=== PATIENT | female | born 1980 | race African-American/Black ===

== ENCOUNTER 2021-05-16 14:46 | Emergency (ER) | payer BC, OTHER ==
[2021-05-16 15:06] VITALS: PULSE 85; BMI 20.3
[2021-05-16 17:29] LABS: BASO % 0.6 % (0-2.0); HEMATOCRIT 37.8 % (32.4-45.2); HEMOGLOBIN 12.8 GM/dL (10.7-15.3); LYMPH % 27.9 % (8-40); MCH 30.1 pg (25.7-33.7); MCHC 33.9 g/dl (32.0-36.0); MEAN CELL VOLUME 88.8 fl (80-96); MEAN PLT VOLUME 8.2 fl (7.5-11.1); MONO % 7.4 % (3.8-10.2); NEUT % 64.1 % (42.8-82.8); PLATELET COUNT 209 10^3/uL (134-434); RBC 4.25 M/mm3 (3.60-5.2); RDW 15.1 % (11.6-15.6); WHITE BLOOD COUNT 3.2 K/mm3 (4.0-10.0)
[2021-05-16 17:31] LABS: PH,URINE 7.5 (5.0-8.0); URINE APPEARANCE CLEAR; URINE BILIRUBIN NEGATIVE (NEGATIVE); URINE COLOR YELLOW; URINE GLUCOSE (UA) NEGATIVE (NEGATIVE); URINE KETONE NEGATIVE (NEGATIVE); URINE LEUK ESTERASE NEGATIVE (NEGATIVE); URINE NITRITE NEGATIVE (NEGATIVE); URINE PROTEIN NEGATIVE (NEGATIVE); URINE UROBILINOGEN 0.2 mg/dL (0.2-1.0)
[2021-05-16 17:34] LABS: HCG,QUALITATIVE URINE Negative
[2021-05-16 17:48] LABS: CHLORIDE 106 mmol/L (98-107); COCAINE, UR NEGATIVE (NEGATIVE); METHADONE, UR NEGATIVE (NEGATIVE); OPIATES, URI NEGATIVE (NEGATIVE); PHENCYCLIDINE,URINE NEGATIVE (NEGATIVE); SODIUM 138 mmol/L (136-145); URINE BENZODIAZEPINES NEGATIVE (NEGATIVE)
[2021-05-16 17:49] LABS: URINE AMPHETAMINES NEGATIVE (NEGATIVE)
[2021-05-16 17:52] LABS: BLOOD UREA NITROGEN 5.2 mg/dL (7-18); CALCIUM 8.7 mg/dL (8.5-10.1)
[2021-05-16 17:53] LABS: ANION GAP 6 MMOL/L (8-16); CO2 26 mmol/L (21-32); GLUCOSE,RANDOM 102 mg/dL (74-106); MAGNESIUM 1.9 mg/dL (1.8-2.4); URINE BARBITURATES NEGATIVE (NEGATIVE)
[2021-05-16 17:55] LABS: SGOT/AST 15 U/L (15-37); SGPT/ALT 17 U/L (13-61)
[2021-05-16 17:56] LABS: PHOSPHOROUS 2.9 mg/dL (2.5-4.9)
[2021-05-16 17:57] LABS: BILIRUBIN,TOTAL 1.6 mg/dL (0.2-1); TOT PROT 7.5 g/dl (6.4-8.2)
[2021-05-16 17:58] LABS: ALK PHOS 69 U/L (45-117)
[2021-05-16 18:51] VITALS: BP 132/75; TEMP 98
== END 2021-05-16 18:15 | disposition home or self-care (01) ==
LOC: JER 14:46
DX: R00.2 Palpitations (principal)
CPT/HCPCS: 36415; 80053; 80307; 81003; 82550; 83735; 84100; 84443; 84484; 84703; 85025; 87086; 93005; 93010; 99284-25

== ENCOUNTER 2021-06-24 22:42 | Emergency (ER) | payer BC, OTHER ==
[2021-06-24 22:47] VITALS: BMI 19.3
[2021-06-24 23:52] VITALS: TEMP 98.4
[2021-06-25 00:35] LABS: BASO % 0.5 % (0-2.0); EOS % 0.6 % (0-4.5); HEMATOCRIT 37.3 % (32.4-45.2); HEMOGLOBIN 12.6 GM/dL (10.7-15.3); LYMPH % 37.6 % (8-40); MCH 30.1 pg (25.7-33.7); MCHC 33.9 g/dl (32.0-36.0); MEAN CELL VOLUME 88.6 fl (80-96); MEAN PLT VOLUME 8.3 fl (7.5-11.1); MONO % 9.1 % (3.8-10.2); NEUT % 52.2 % (42.8-82.8); PLATELET COUNT 189 10^3/uL (134-434); RBC 4.21 M/mm3 (3.60-5.2); RDW 15.4 % (11.6-15.6); WHITE BLOOD COUNT 3.7 K/mm3 (4.0-10.0)
[2021-06-25 01:00] LABS: CHLORIDE 106 mmol/L (98-107); SODIUM 138 mmol/L (136-145)
[2021-06-25 01:02] LABS: CALCIUM 8.8 mg/dL (8.5-10.1)
[2021-06-25 01:03] LABS: ANION GAP 5 MMOL/L (8-16); BLOOD UREA NITROGEN 4.6 mg/dL (7-18); CO2 28 mmol/L (21-32); GLUCOSE,RANDOM 92 mg/dL (74-106)
[2021-06-25 01:06] LABS: CREATININE 0.9 mg/dL (0.55-1.3); SGOT/AST 11 U/L (15-37); SGPT/ALT 12 U/L (13-61)
[2021-06-25 01:08] LABS: BILIRUBIN,TOTAL 1.1 mg/dL (0.2-1); TOT PROT 7.4 g/dl (6.4-8.2)
[2021-06-25 01:09] LABS: ALK PHOS 78 U/L (45-117)
[2021-06-25 01:13] LABS: PH,URINE 5.5 (5.0-8.0); URINE APPEARANCE CLEAR; URINE BILIRUBIN NEGATIVE (NEGATIVE); URINE COLOR YELLOW; URINE GLUCOSE (UA) NEGATIVE (NEGATIVE); URINE KETONE NEGATIVE (NEGATIVE); URINE LEUK ESTERASE NEGATIVE (NEGATIVE); URINE NITRITE NEGATIVE (NEGATIVE); URINE PROTEIN NEGATIVE (NEGATIVE); URINE UROBILINOGEN 0.2 mg/dL (0.2-1.0)
[2021-06-25] MEDS ORDERED: HYDROCHLOROTHIAZIDE 25 MG TABLET (FP) PO ONE (02:23)
[2021-06-25] MEDS ORDERED: HYDROCHLOROTHIAZIDE 25 MG TABLET (FP) ONE (02:27)
[2021-06-25 02:43] VITALS: BP 127/91; PULSE 60
== END 2021-06-25 02:45 | disposition home or self-care (01) ==
LOC: JER 22:42
DX: R42 Dizziness and giddiness (principal); I10 Essential (primary) hypertension
CPT/HCPCS: 36415; 70450-TC; 71045-TC-FY; 80053; 81003; 84484; 84703; 85025; 87086; 93005; 93010; 99285-25; C9803; U0003; U0005

== ENCOUNTER 2021-07-19 19:54 | Inpatient (IN) | payer BC, OTHER ==
[2021-07-19 21:22] LABS: BASO % 0.6 % (0-2.0); EOS % 0.3 % (0-4.5); HEMATOCRIT 41.4 % (32.4-45.2); HEMOGLOBIN 13.7 GM/dL (10.7-15.3); LYMPH % 36.7 % (8-40); MCH 29.9 pg (25.7-33.7); MEAN CELL VOLUME 90.5 fl (80-96); MEAN PLT VOLUME 7.7 fl (7.5-11.1); MONO % 7.7 % (3.8-10.2); NEUT % 54.7 % (42.8-82.8); PLATELET COUNT 219 10^3/uL (134-434); RBC 4.58 M/mm3 (3.60-5.2); RDW 15.9 % (11.6-15.6); WHITE BLOOD COUNT 4.1 K/mm3 (4.0-10.0)
[2021-07-19 21:34] LABS: CHLORIDE 107 mmol/L (98-107); SODIUM 138 mmol/L (136-145)
[2021-07-19 21:37] LABS: ANION GAP 8 MMOL/L (8-16); BLOOD UREA NITROGEN 6.1 mg/dL (7-18); CO2 24 mmol/L (21-32); GLUCOSE,RANDOM 85 mg/dL (74-106)
[2021-07-19 21:39] LABS: SGPT/ALT 17 U/L (13-61)
[2021-07-19 21:40] LABS: CREATININE 0.8 mg/dL (0.55-1.3); PHOSPHOROUS 3.6 mg/dL (2.5-4.9); SGOT/AST 20 U/L (15-37)
[2021-07-19 21:40] LABS: URINE APPEARANCE CLEAR; URINE BILIRUBIN NEGATIVE (NEGATIVE); URINE COLOR YELLOW; URINE GLUCOSE (UA) NEGATIVE (NEGATIVE); URINE KETONE NEGATIVE (NEGATIVE); URINE LEUK ESTERASE NEGATIVE (NEGATIVE); URINE NITRITE NEGATIVE (NEGATIVE); URINE PROTEIN NEGATIVE (NEGATIVE); URINE UROBILINOGEN 0.2 mg/dL (0.2-1.0)
[2021-07-19 21:41] LABS: TOT PROT 7.6 g/dl (6.4-8.2)
[2021-07-19 21:42] LABS: ALK PHOS 68 U/L (45-117)
[2021-07-19 21:45] LABS: N-TERMINAL BNP 57.4 pg/ml (5-125)
[2021-07-19 22:09] LABS: INR 1.01 (0.83-1.09); PROTHROMBIN TIME (PATIENT) 12.4 SEC (9.7-13.0)
[2021-07-20] MEDS ORDERED: ARTIFICIAL TEARS (POLYVINYL ALCOHOL) OPTH DROPS OU PRN (01:02)
[2021-07-20] MEDS ORDERED: ACETAMINOPHEN 325 MG TABLET (FP) PO PRN (05:18)
[2021-07-20] MEDS ORDERED: HYDROCHLOROTHIAZIDE 12.5 MG CAPSULE (FP) PO SCH (10:00)
[2021-07-20 10:31] LABS: BASO % 0.4 % (0-2.0); EOS % 0.1 % (0-4.5); HEMATOCRIT 36.6 % (32.4-45.2); HEMOGLOBIN 12.4 GM/dL (10.7-15.3); LYMPH % 36.3 % (8-40); MCH 30.7 pg (25.7-33.7); MEAN CELL VOLUME 90.5 fl (80-96); MEAN PLT VOLUME 7.9 fl (7.5-11.1); MONO % 6.3 % (3.8-10.2); NEUT % 56.9 % (42.8-82.8); PLATELET COUNT 212 10^3/uL (134-434); RBC 4.05 M/mm3 (3.60-5.2); RDW 15.9 % (11.6-15.6); WHITE BLOOD COUNT 3.4 K/mm3 (4.0-10.0)
[2021-07-20 10:38] VITALS: BMI 18.6
[2021-07-20] MEDS ORDERED: PT OWN MED DRAWER 7, Y5N ONE ×2 (10:45→21:09)
[2021-07-20 10:50] LABS: CALCIUM 8.5 mg/dL (8.5-10.1)
[2021-07-20 10:51] LABS: ALBUMIN 3.5 g/dl (3.4-5.0); BLOOD UREA NITROGEN 4.9 mg/dL (7-18); MAGNESIUM 1.8 mg/dL (1.8-2.4)
[2021-07-20 10:54] LABS: CREATININE 0.8 mg/dL (0.55-1.3)
[2021-07-20 10:55] LABS: BILIRUBIN,TOTAL 1.3 mg/dL (0.2-1); PHOSPHOROUS 3.2 mg/dL (2.5-4.9); TOT PROT 6.6 g/dl (6.4-8.2)
[2021-07-20] MEDS ORDERED: PANTOPRAZOLE 40 MG TABLET PO ONE (13:17)
[2021-07-20] MEDS: SODIUM CHLORIDE 1,000 ML IV SCH (14:50)
[2021-07-20] MEDS: ENOXAPARIN NA (PORCINE) 40 MG/0.4 ML DISP.SYRIN SQ SCH (18:33)
[2021-07-20] MEDS ORDERED: METOCLOPRAMIDE HCL INJECTION 10 MG/2 ML VIAL IVPUSH PRN (20:28)
[2021-07-20] MEDS: LOSARTAN POTASSIUM 25 MG TABLET PO SCH (21:17)
[2021-07-20] MEDS: FLUTICASONE PROP 0.05% 16 GM NASAL SPRAY NS SCH (21:23)
[2021-07-20] MEDS ORDERED: LOSARTAN 50MG/HCTZ 12.5MG 1 TAB PO SCH (22:00)
[2021-07-20] MEDS ORDERED: LOSARTAN POTASSIUM 50 MG TABLET PO SCH (22:00)
[2021-07-21] MEDS: SODIUM CHLORIDE 1,000 ML IV SCH ×2 (06:08→21:20)
[2021-07-21 06:30] LABS: BASO % 0.6 % (0-2.0); EOS % 0.7 % (0-4.5); HEMATOCRIT 35.7 % (32.4-45.2); HEMOGLOBIN 12.1 GM/dL (10.7-15.3); LYMPH % 53.7 % (8-40); MCH 30.8 pg (25.7-33.7); MCHC 33.9 g/dl (32.0-36.0); MEAN CELL VOLUME 90.9 fl (80-96); MEAN PLT VOLUME 8.1 fl (7.5-11.1); PLATELET COUNT 193 10^3/uL (134-434); RBC 3.93 M/mm3 (3.60-5.2); RDW 15.4 % (11.6-15.6); WHITE BLOOD COUNT 3.8 K/mm3 (4.0-10.0)
[2021-07-21 06:52] LABS: CALCIUM 8.3 mg/dL (8.5-10.1)
[2021-07-21 06:53] LABS: ALBUMIN 3.3 g/dl (3.4-5.0); BLOOD UREA NITROGEN 5.5 mg/dL (7-18)
[2021-07-21 06:56] LABS: BILIRUBIN,TOTAL 1.2 mg/dL (0.2-1); CREATININE 0.8 mg/dL (0.55-1.3); TOT PROT 6.4 g/dl (6.4-8.2)
[2021-07-21] MEDS: PANTOPRAZOLE 40 MG TABLET PO SCH (09:59)
[2021-07-21] MEDS: ENOXAPARIN NA (PORCINE) 40 MG/0.4 ML DISP.SYRIN SQ SCH (10:02)
[2021-07-21] MEDS: FLUTICASONE PROP 0.05% 16 GM NASAL SPRAY NS SCH ×2 (10:06→21:14)
[2021-07-21] MEDS: LOSARTAN POTASSIUM 25 MG TABLET PO SCH (21:14)
[2021-07-21] MEDS: POLYETHYLENE GLYCOL (HEALTHYLAX) 3350 17 GM PACKET PO SCH (21:14)
[2021-07-22] MEDS: POLYETHYLENE GLYCOL (HEALTHYLAX) 3350 17 GM PACKET PO SCH ×4 (06:09→21:11)
[2021-07-22] MEDS: PANTOPRAZOLE 40 MG TABLET PO SCH (09:37)
[2021-07-22] MEDS ORDERED: MAGNESIUM OXIDE 400 MG TABLET (FP) PO ONE (12:39)
[2021-07-22] MEDS: FLUTICASONE PROP 0.05% 16 GM NASAL SPRAY NS SCH ×2 (12:47→21:11)
[2021-07-22] MEDS: NORTRIPTYLINE HCL 10 MG CAPSULE PO SCH ×2 (13:35→14:21)
[2021-07-22 16:09] LABS: BASO % 0.5 % (0-2.0); EOS % 0.4 % (0-4.5); HEMATOCRIT 36.6 % (32.4-45.2); HEMOGLOBIN 12.2 GM/dL (10.7-15.3); LYMPH % 30.7 % (8-40); MCH 30.3 pg (25.7-33.7); MCHC 33.2 g/dl (32.0-36.0); MEAN CELL VOLUME 91.3 fl (80-96); MEAN PLT VOLUME 7.8 fl (7.5-11.1); NEUT % 59.4 % (42.8-82.8); PLATELET COUNT 199 10^3/uL (134-434); RBC 4.01 M/mm3 (3.60-5.2); RDW 15.8 % (11.6-15.6); WHITE BLOOD COUNT 4.6 K/mm3 (4.0-10.0)
[2021-07-22 16:43] LABS: ALBUMIN 3.8 g/dl (3.4-5.0); BLOOD UREA NITROGEN 6.4 mg/dL (7-18); CALCIUM 9.1 mg/dL (8.5-10.1)
[2021-07-22 16:47] LABS: CREATININE 0.8 mg/dL (0.55-1.3)
[2021-07-22 16:48] LABS: BILIRUBIN,TOTAL 1.1 mg/dL (0.2-1); TOT PROT 7.2 g/dl (6.4-8.2)
[2021-07-22] MEDS: LOSARTAN POTASSIUM 25 MG TABLET PO SCH (21:11)
[2021-07-23] MEDS: POLYETHYLENE GLYCOL (HEALTHYLAX) 3350 17 GM PACKET PO SCH ×3 (06:15→21:40)
[2021-07-23 08:41] LABS: BASO % 0.5 % (0-2.0); EOS % 0.7 % (0-4.5); HEMATOCRIT 36.5 % (32.4-45.2); HEMOGLOBIN 12.4 GM/dL (10.7-15.3); LYMPH % 34.7 % (8-40); MCH 30.7 pg (25.7-33.7); MCHC 33.9 g/dl (32.0-36.0); MEAN CELL VOLUME 90.7 fl (80-96); MEAN PLT VOLUME 8.6 fl (7.5-11.1); NEUT % 57.1 % (42.8-82.8); PLATELET COUNT 203 10^3/uL (134-434); RBC 4.03 M/mm3 (3.60-5.2); RDW 15.9 % (11.6-15.6); WHITE BLOOD COUNT 3.2 K/mm3 (4.0-10.0)
[2021-07-23 09:03] LABS: CALCIUM 8.6 mg/dL (8.5-10.1)
[2021-07-23 09:04] LABS: ALBUMIN 3.4 g/dl (3.4-5.0); BLOOD UREA NITROGEN 4.9 mg/dL (7-18)
[2021-07-23 09:07] LABS: CREATININE 0.8 mg/dL (0.55-1.3)
[2021-07-23 09:08] LABS: BILIRUBIN,TOTAL 1.3 mg/dL (0.2-1); TOT PROT 6.6 g/dl (6.4-8.2)
[2021-07-23] MEDS: FLUTICASONE PROP 0.05% 16 GM NASAL SPRAY NS SCH (09:47)
[2021-07-23] MEDS: PANTOPRAZOLE 40 MG TABLET PO SCH (09:48)
[2021-07-23] MEDS: NORTRIPTYLINE HCL 10 MG CAPSULE PO SCH (09:48)
[2021-07-23] MEDS: MAGNESIUM OXIDE 400 MG TABLET (FP) PO SCH (09:48)
[2021-07-23] MEDS ORDERED: SUMAtriptan SUCCINATE 25 MG TABLET PO PRN (11:07)
[2021-07-23] MEDS: LOSARTAN POTASSIUM 25 MG TABLET PO SCH (21:40)
[2021-07-24] MEDS: POLYETHYLENE GLYCOL (HEALTHYLAX) 3350 17 GM PACKET PO SCH ×2 (06:28→13:37)
[2021-07-24 07:09] LABS: BASO % 0.6 % (0-2.0); HEMATOCRIT 36.5 % (32.4-45.2); HEMOGLOBIN 12.2 GM/dL (10.7-15.3); LYMPH % 49.6 % (8-40); MCH 30.4 pg (25.7-33.7); MCHC 33.3 g/dl (32.0-36.0); MEAN CELL VOLUME 91.2 fl (80-96); MEAN PLT VOLUME 8.5 fl (7.5-11.1); MONO % 9.8 % (3.8-10.2); PLATELET COUNT 200 10^3/uL (134-434); RDW 15.9 % (11.6-15.6)
[2021-07-24 07:30] LABS: INR 1.04 (0.83-1.09); PROTHROMBIN TIME (PATIENT) 12.6 SEC (9.7-13.0)
[2021-07-24 07:50] LABS: CALCIUM 8.4 mg/dL (8.5-10.1)
[2021-07-24 07:51] LABS: ALBUMIN 3.1 g/dl (3.4-5.0); BLOOD UREA NITROGEN 5.8 mg/dL (7-18); MAGNESIUM 1.9 mg/dL (1.8-2.4)
[2021-07-24 07:54] LABS: CREATININE 0.9 mg/dL (0.55-1.3)
[2021-07-24 07:55] LABS: TOT PROT 6.4 g/dl (6.4-8.2)
[2021-07-24 07:57] LABS: BILIRUBIN,TOTAL 1.1 mg/dL (0.2-1)
[2021-07-24 13:35] VITALS: BP 111/78; PULSE 83; TEMP 98.3
[2021-07-24] MEDS: MAGNESIUM OXIDE 400 MG TABLET (FP) PO SCH (13:37)
[2021-07-24] MEDS: PANTOPRAZOLE 40 MG TABLET PO SCH (13:38)
== END 2021-07-24 18:42 | disposition home or self-care (01) | DRG 313 ==
LOC: JER 19:54 → JERBED 20:44 → J4S 07-20 04:18
PROVIDERS: ADMIT Internal Medicine; ATTEND Nurse Practitioner Acute Care
PROC: 0DB68ZX Excision of Stomach, Via Natural or Artificial Opening Endoscopic, Diagnostic (ICD-10-PCS; 2021-07-24)
PROC: 0DB98ZX Excision of Duodenum, Via Natural or Artificial Opening Endoscopic, Diagnostic (ICD-10-PCS; principal; 2021-07-24 12:21)
DX: R07.89 Other chest pain (principal); Q61.3 Polycystic kidney, unspecified; Z68.1 Body mass index [BMI] 19.9 or less, adult; R42 Dizziness and giddiness; I10 Essential (primary) hypertension; M41.9 Scoliosis, unspecified; R51.9 Headache, unspecified; K59.00 Constipation, unspecified; K21.9 Gastro-esophageal reflux disease without esophagitis; R55 Syncope and collapse; R10.11 Right upper quadrant pain; R63.4 Abnormal weight loss; R00.2 Palpitations
CPT/HCPCS: 36415; 70544-TC; 70551-TC; 71046-TC-FY; 71275-TC; 76705-TC; 80053; 81003; 81025; 82550; 83735; 83880; 84100; 84443; 84484; 84703; 85025; 85379; 85610; 85730; 86140; 88305-TC; 93005; 93010; 93306-TC; 99285-25; C9803; Q9967; U0003; U0005

== ENCOUNTER 2021-12-25 06:34 | Day surgery (SDC) | payer BC, OTHER ==
[2021-12-25] MEDS ORDERED: IRON SUCROSE INJECTION 300 MG in SODIUM CHLORIDE 250 ML IVPB ONE (10:00)
[2021-12-25 17:18] VITALS: TEMP 98.2
[2021-12-25 17:43] VITALS: BP 124/77; PULSE 61
== END 2021-12-25 18:04 | disposition home or self-care (01) ==
LOC: JONCNONCHE 06:34
PROVIDERS: ATTEND Internal Medicine Hematology & Oncology
PROC: 3E033GC Introduction of Other Therapeutic Substance into Peripheral Vein, Percutaneous Approach (ICD-10-PCS; principal; 2021-12-25)
DX: D50.9 Iron deficiency anemia, unspecified (principal)
CPT/HCPCS: 96365; J1756

== ENCOUNTER 2022-01-01 07:15 | Day surgery (SDC) | payer BC, OTHER ==
[2022-01-01] MEDS ORDERED: IRON SUCROSE INJECTION 300 MG in SODIUM CHLORIDE 250 ML IVPB ONE (10:00)
[2022-01-01 18:14] VITALS: TEMP 98.4
[2022-01-01 18:16] VITALS: BP 108/70; PULSE 64
== END 2022-01-01 18:27 | disposition home or self-care (01) ==
LOC: JONCNONCHE 07:15
PROVIDERS: ATTEND Internal Medicine Hematology & Oncology
PROC: 3E033GC Introduction of Other Therapeutic Substance into Peripheral Vein, Percutaneous Approach (ICD-10-PCS; principal; 2022-01-01)
DX: D50.9 Iron deficiency anemia, unspecified (principal)
CPT/HCPCS: 96365; J1756

== ENCOUNTER 2022-01-08 07:16 | Day surgery (SDC) | payer BC, OTHER ==
[2022-01-08] MEDS ORDERED: IRON SUCROSE INJECTION 300 MG in SODIUM CHLORIDE 250 ML IVPB ONE (10:00)
[2022-01-08 17:21] VITALS: TEMP 98.3
[2022-01-08 19:03] VITALS: BP 114/78; PULSE 57
== END 2022-01-08 19:13 | disposition home or self-care (01) ==
LOC: JONCNONCHE 07:16
PROVIDERS: ATTEND Internal Medicine Hematology & Oncology
PROC: 3E033GC Introduction of Other Therapeutic Substance into Peripheral Vein, Percutaneous Approach (ICD-10-PCS; principal; 2022-01-08)
DX: D50.9 Iron deficiency anemia, unspecified (principal)
CPT/HCPCS: 96365; J1756

== ENCOUNTER 2022-01-15 07:27 | Day surgery (SDC) | payer BC, OTHER ==
[2022-01-15] MEDS ORDERED: IRON SUCROSE INJECTION 300 MG in SODIUM CHLORIDE 250 ML IVPB ONE (10:00)
[2022-01-15 17:10] VITALS: TEMP 98.2
[2022-01-15 19:04] VITALS: BP 111/70; PULSE 55
== END 2022-01-15 19:10 | disposition home or self-care (01) ==
LOC: JONCNONCHE 07:27
PROVIDERS: ATTEND Internal Medicine Hematology & Oncology
PROC: 3E033GC Introduction of Other Therapeutic Substance into Peripheral Vein, Percutaneous Approach (ICD-10-PCS; principal; 2022-01-15)
DX: D50.9 Iron deficiency anemia, unspecified (principal)
CPT/HCPCS: 96365; J1756